=== PATIENT | male | born 1965 | race Caucasian/White ===

== ENCOUNTER 2019-01-04 16:36 | Emergency (ER) | payer OTHER ==
[~2019-01-04] VITALS: Ht 160 cm; Wt 53.7 kg
[2019-01-04 16:39] VITALS: PULSE 93; RESP 20; Ht 160 cm; Wt 53.7 kg
--- NOTE | 2019-01-04 16:44 | EN ---
Date/Time of Note Date/Time of Note DATE: 01/04/19 TIME: 16:43 ER Progress Note MSE in ED 3. Right buttock abscess to ED2 for I&D. DONG FULLER MD January 04, 2019 16:44
[2019-01-04] MEDS ORDERED: CEPHALEXIN 500 MG CAP PO ONE (17:00)
[2019-01-04] MEDS ORDERED: TRIMETHOPRIM/SULFAMETHOX (DS) TAB PO ONE (17:00)
[2019-01-04] MEDS ORDERED: LIDOCAINE 1% (MDV) 20 ML INJ SC ONE (17:00)
[2019-01-04] MEDS ORDERED: IBUPROFEN 600 MG TAB PO ONE (17:00)
[2019-01-04] MEDS ORDERED: SULF1TAB31 PO (17:10)
[2019-01-04] MEDS ORDERED: ACET1TAB40 PO (17:10)
[2019-01-04] MEDS ORDERED: CEPH-443 PO (17:10)
--- NOTE | 2019-01-04 17:13 | ERD ---
ER Documentation Chief Complaint Chief Complaint ABSCESS RIGHT UPPER THIGH HPI 53-year-old male presents with a one-week history of pain swelling redness and discharge on his right hip or upper thigh area. He denies a history of trauma. He possibly sat on something. Denies any vomiting. He has tactile fevers at home but no fever triage. He has no shortness of breath, chest pain, additional complaints. His blood pressure is elevated triage. He has a history of hypertension and takes medication. He denies any deficits, chest pain, shortness of breath. ROS All systems reviewed and are negative except as per history of present illness. Medications Home Meds Active Scripts Cephalexin* (Keflex*) 500 Mg Capsule, 500 MG PO QID for 7 Days, CAP Prov:DONG FULLER MD 01/04/19 Sulfamethoxazole/Trimethoprim* (Bactrim Ds* Tablet) 1 Each Tablet, 1 TAB PO BID for 7 Days, #14 TAB Prov:DONG FULLER MD 01/04/19 Acetaminophen with Codeine (Acetaminophen-Cod #3 Tablet) 1 Each Tablet, 1 TAB PO Q6H PRN for PAIN, #10 TAB Prov:DONG FULLER MD 01/04/19 Allergies Allergies: Coded Allergies: No Known Allergy (Unverified , 01/04/19) PMhx/Soc History of Surgery: No Anesthesia Reaction: No Hx Neurological Disorder: No Hx Respiratory Disorders: No Hx Cardiac Disorders: Yes (HTN) Hx Psychiatric Problems: No Hx Miscellaneous Medical Probl: No Hx Alcohol Use: No Hx Substance Use: No Hx Tobacco Use: No Smoking Status: Never smoker FmHx Family History: No diabetes, No coronary disease, No other Physical Exam Vitals Vital Signs Date Temp Pulse Resp B/P (MAP) Pulse Ox O2 O2 Flow FiO2 Time Delivery Rate 01/04/19 98.7 93 20 180/98 98 16:39 (125) Physical Exam Const: No acute distress Head: Atraumatic Eyes: Normal Conjunctiva ENT: Normal External Ears, Nose and Mouth. Neck: Full range of motion. No meningismus. Resp: Clear to auscultation bilaterally Cardio: Regular rate and rhythm, no murmurs Abd: Soft, non tender, non distended. Normal bowel sounds Skin: No petechiae or rashes. Right greater trochanter area approximately 3 cm area of redness, fluctuance, with a scant amount of spontaneous discharge. There is no induration or streaking. Back: No midline or flank tenderness Ext: No cyanosis, or edema Neur: Awake and alert Psych: Normal Mood and Affect Results 24 hrs Current Medications Medications Dose Sig/Tam Start Time Status Last (Trade) Ordered Route PRN Stop Time Admin Dose Reason Admin Ibuprofen 600 mg ONCE ONCE 01/04/19 DC (Motrin) PO 17:00 01/04/19 17:01 1 tab ONCE ONCE 01/04/19 DC Trimethoprim/ PO 17:00 01/04/19 17:01 Sulfamethoxaz ole (Bactrim (Ds)) Cephalexin 500 mg ONCE ONCE 01/04/19 DC (Keflex) PO 17:00 01/04/19 17:01 Lidocaine 20 ml ONCE ONCE 01/04/19 DC (Xylocaine SC 17:00 1% (Mdv) 20 01/04/19 17:01 ml) Procedures/MDM She presents with signs of an acute abscess on the right external hip area. There is no signs to suggest necrotizing fasciitis, sepsis. Procedure note-patient was given ibuprofen, Bactrim and Keflex. Right hip area was prepped with Betadine. 4 cc of lidocaine was used for local infiltration. #11 scalpel was used to incise the wound. Fibrin exudate was debrided. Small amount of pus was expressed. Wound was not packed due to the small size of the wound. Wound was dressed and patient tolerated procedure well. We discharged home with recommendations for wound care to recheck for improving infection the next 2 to 3 days. He should return sooner for worsening redness, fevers, vomiting, new worsening symptoms with primary care doctor. The patient's blood pressure was elevated (>120/80) but appears stable without evidence of hypertension emergency or urgency. The patient was counseled about the risks of hypertension and urged to pursue outpatient monitoring and therapy within a week with their primary care physician. I discussed the findings with the patient. I advised the patient to follow-up with the primary physician in about 1-2 days, sooner if needed and return if any concern. Departure Diagnosis: Primary Impression: Abscess Additional Impression: Hypertension Condition: Stable Patient Instructions: Abscess, Incision And Drainage Referrals: DOCTOR,NOT ON STAFF (PCP) Additional Instructions: Recheck in 2 to 3 days for further evaluation. Recheck sooner for worsening redness, fevers, vomiting, new worsening symptoms. Take ibuprofen 400 to 600 mg every 6 hours as well for pain. DONG FULLER MD January 04, 2019 17:13
[2019-01-04 17:21] VITALS: BP 144/87
== END 2019-01-04 17:21 | disposition home or self-care (01) ==
LOC: FTE 16:36
DX: L02.415 Cutaneous abscess of right lower limb (principal); I10 Essential (primary) hypertension
CPT/HCPCS: 10060; Z7502; Z7610

== ENCOUNTER 2019-01-06 07:50 | Emergency (ER) | payer OTHER ==
[~2019-01-06] VITALS: Wt 78.0 kg
[~2019-01-06 07:50] MED LIST: ACET1TAB40 PO; CEPH-443 PO; SULF1TAB31 PO
[2019-01-06 07:52] VITALS: BP 138/72; PULSE 74; RESP 18
--- NOTE | 2019-01-06 10:00 | ERD ---
ER Documentation Chief Complaint Chief Complaint RIGHT BUTTOCKS WOUND CHECK HPI 53-year-old male presenting with abscess recheck to his right thigh. Patient was placed on antibiotics 2 days ago and is taking medications. He had incision and drainage at that time. Patient's wound has been draining appropriately and he has no fevers or worsening pain. He states he feels that the symptoms are improving. Denies other medical problems. NKDA. Surgical history denies. Social history denies ROS All systems reviewed and are negative except as per history of present illness. Medications Home Meds Active Scripts Cephalexin* (Keflex*) 500 Mg Capsule, 500 MG PO QID for 7 Days, CAP Prov:DONG FULLER MD 01/04/19 Sulfamethoxazole/Trimethoprim* (Bactrim Ds* Tablet) 1 Each Tablet, 1 TAB PO BID for 7 Days, #14 TAB Prov:DONG FULLER MD 01/04/19 Acetaminophen with Codeine (Acetaminophen-Cod #3 Tablet) 1 Each Tablet, 1 TAB PO Q6H PRN for PAIN, #10 TAB Prov:DONG FULLER MD 01/04/19 Allergies Allergies: Coded Allergies: No Known Allergy (Unverified , 01/04/19) PMhx/Soc History of Surgery: No Anesthesia Reaction: No Hx Neurological Disorder: No Hx Respiratory Disorders: No Hx Cardiac Disorders: Yes (HTN) Hx Psychiatric Problems: No Hx Miscellaneous Medical Probl: No Hx Alcohol Use: No Hx Substance Use: No Hx Tobacco Use: No FmHx Family History: No diabetes, No coronary disease, No other Physical Exam Vitals Vital Signs Date Temp Pulse Resp B/P (MAP) Pulse Ox O2 O2 Flow FiO2 Time Delivery Rate 01/06/19 97.8 74 18 138/72 99 07:52 (94) Physical Exam GENERAL: The patient is well-appearing, well-nourished, in no acute distress CHEST: Clear to auscultation bilaterally. There are no rales, wheezes or rhonchi. HEART: Regular rate and rhythm. No murmurs, clicks, rubs or gallops. No S3 or S4. SKIN: Healing abscess noted to the right thigh with mild erythema. No fluctuanc e. No purulence removed. No lymphatic streaking. Procedures/MDM Course: Site clean and bandage applied. MDM: 53-year-old male presenting with wound check of abscess. Abscess is healing appropriately. I do not feel there is indication for further incision and drainage or packing placement. Patient is recommended to continue antibiotics as previously prescribed. It is recommended to clean with soap and water and apply warm compresses. Patient is discharged with strict ER precauti ons. Patient is told symptoms change or worsen to return the ER. All questions answered at discharge Departure Diagnosis: Primary Impression: Encounter for wound re-check Condition: Stable Patient Instructions: Wound Care Referrals: [facility] YOU HAVE RECEIVED A MEDICAL SCREENING EXAM AND THE RESULTS INDICATE THAT YOU DO NOT HAVE A CONDITION THAT REQUIRES URGENT TREATMENT IN THE EMERGENCY DEPARTMENT. FURTHER EVALUATION AND TREATMENT OF YOUR CONDITION CAN WAIT UNTIL YOU ARE SEEN IN YOUR DOCTORS OFFICE WITHIN THE NEXT 1-2 DAYS. IT IS YOUR RESPONSIBILITY TO MAKE AN APPOINTMENT FOR FOLOW-UP CARE. IF YOU HAVE A PRIMARY DOCTOR --you should call your primary doctor and schedule an appointment IF YOU DO NOT HAVE A PRIMARY DOCTOR YOU CAN CALL OUR PHYSICIAN REFERRAL HOTLINE AT IF YOU CAN NOT AFFORD TO SEE A PHYSICIAN YOU CAN CHOSE FROM THE FOLLOWING [facility] [address] [facility]. [facility] [address] [facility] [facility] [address] [facility] [facility] [address] [facility]. [facility] [address] [facility]. [facility]. [address] Additional Instructions: FOLLOW UP WITH YOUR PRIMARY CARE PHYSICIAN TOMORROW.Return to this facility if you are not improving as expected. KHOA HUFFMAN PA-C January 06, 2019 10:00
== END 2019-01-06 08:30 | disposition home or self-care (01) ==
LOC: FTE 07:50
DX: Z48.01 Encounter for change or removal of surgical wound dressing (principal); I10 Essential (primary) hypertension
CPT/HCPCS: 99281

== ENCOUNTER 2019-02-09 17:02 | Emergency (ER) | payer OTHER ==
[~2019-02-09] VITALS: Wt 56.2 kg
[2019-02-09] MEDS ORDERED: LIDOCAINE 4% CR TOP ONE (19:00)
[2019-02-09] MEDS ORDERED: LIDOCAINE 1% (MDV) 20 ML INJ SC ONE (19:00)
[2019-02-09] MEDS ORDERED: BACITRACIN 0.9 GM OINT TOP ONE (19:00)
--- NOTE | 2019-02-09 19:05 | ERD ---
ER Documentation Chief Complaint Chief Complaint ABCESS ONLEFT HIP, RIGHT BUTTOCKS HPI 53-year-old male with history of abscesses presents with complaint of abscess on the right buttocks and left hip. States he knows he probably is going to be getting a little bit better. States he just had abscesses drained returns from location on December 29. Denies any fevers, chills. ROS All systems reviewed and are negative except as per history of present illness. Medications Home Meds Active Scripts Cephalexin* (Keflex*) 500 Mg Capsule, 500 MG PO QID for 7 Days, CAP Prov:SHIRLEY COLIN 02/09/19 Sulfamethoxazole/Trimethoprim* (Bactrim Ds* Tablet) 1 Each Tablet, 1 TAB PO BID, #14 TAB Prov:SHIRLEY COLIN 02/09/19 Cephalexin* (Keflex*) 500 Mg Capsule, 500 MG PO QID for 7 Days, CAP Prov:DONG FULLER MD 01/04/19 Sulfamethoxazole/Trimethoprim* (Bactrim Ds* Tablet) 1 Each Tablet, 1 TAB PO BID for 7 Days, #14 TAB Prov:DONG FULLER MD 01/04/19 Acetaminophen with Codeine (Acetaminophen-Cod #3 Tablet) 1 Each Tablet, 1 TAB PO Q6H PRN for PAIN, #10 TAB Prov:DONG FULLER MD 01/04/19 Allergies Allergies: Coded Allergies: No Known Allergy (Unverified , 01/04/19) PMhx/Soc History of Surgery: No Anesthesia Reaction: No Hx Neurological Disorder: No Hx Respiratory Disorders: No Hx Cardiac Disorders: Yes (HTN) Hx Psychiatric Problems: No Hx Miscellaneous Medical Probl: No Hx Alcohol Use: No Hx Substance Use: No Hx Tobacco Use: No Smoking Status: Never smoker FmHx Family History: No diabetes, No coronary disease, No other Physical Exam Vitals Vital Signs Date Temp Pulse Resp B/P (MAP) Pulse Ox O2 O2 Flow FiO2 Time Delivery Rate 02/09/19 99.0 88 18 155/82 99 17:08 (106) Physical Exam Const: No acute distress Head: Atraumatic Eyes: Normal Conjunctiva ENT: Normal External Ears, Nose and Mouth. Neck: Full range of motion. No meningismus. Resp: Clear to auscultation bilaterally Cardio: Regular rate and rhythm, no murmurs Abd: Soft, non tender, non distended. Normal bowel sounds Skin: Approximately 3 cm fluctuant mass erythematous and tender palpation noted on the lateral aspect of right buttocks. There is no draining or lymphatic streaking noted. In addition there is a approximately 2 cm indurated nonfluctuant erythematous tender palpation mass noted on the left upper extremity with no drainage or lymphatic streaking noted. No surrounding cellulitis noted on either abscess. Back: No midline or flank tenderness Ext: No cyanosis, or edema Neur: Awake and alert Psych: Normal Mood and Affect Results 24 hrs Current Medications Medications Dose Sig/Tam Start Time Status Last (Trade) Ordered Route PRN Stop Time Admin Dose Reason Admin Lidocaine 1 applic ONCE ONCE 02/09/19 DC 02/09/19 (Lmx 4% Plus) TOP 19:00 18:59 02/09/19 19:01 Lidocaine 20 ml ONCE ONCE 02/09/19 DC (Xylocaine SC 19:00 1% (Mdv) 20 02/09/19 19:01 ml) Bacitracin 1 applic ONCE ONCE 02/09/19 DC 02/09/19 (Bacitracin TOP 19:00 18:59 Oint (Ud)) 02/09/19 19:01 Procedures/MDM MDM: Abscess on the buttocks was attempted to drained but very little pus came out. Patient was placed on Bactrim and Keflex and advised to return in 2 days for wound check. Patient given instructions on how to help drain the abscesses including warm compresses and soaks. At this time of low suspicion for lymphangitis, cellulitis, or any emergent condition. And also to return in 2 days for follow-up exam at this time, patient is stable for discharge and outpatient management. I have instructed the patient to follow-up with his/her primary care physician in 1-2 days. I have discussed with the patient the possibility of needing to see a specialist for further workup and imaging studies if symptoms persist. I have instructed the patient to promptly return to the ER for any new or worsening symptoms including but not limited to increased pain, fever, nausea, vomiting, weakness or LOC. The patient and/or family expressed understanding of and agreement with this plan. All questions were answered. Home care instructions were provided. DISCLAIMER: Inadvertent spelling and grammatical errors are likely due to EHR/dictation software use and do not reflect on the overall quality of patient care. Also, please note that the electronic time recorded on this note does not necessarily reflect the actual time of the patient encounter. Departure Diagnosis: Primary Impression: Abscess Condition: Stable SHIRLEY COLIN Feb 09, 2019 19:05
[2019-02-09] MEDS ORDERED: CEPH-443 PO (20:24)
[2019-02-09] MEDS ORDERED: SULF1TAB31 PO (20:24)
[2019-02-09 20:45] VITALS: BP 174/95; PULSE 77; RESP 18
== END 2019-02-09 20:47 | disposition home or self-care (01) ==
LOC: FTE 17:02
DX: L02.31 Cutaneous abscess of buttock (principal); I10 Essential (primary) hypertension
CPT/HCPCS: 10060; Z7502; Z7610

== ENCOUNTER 2019-02-12 18:02 | Emergency (ER) | payer OTHER ==
[~2019-02-12] VITALS: Ht 167.6 cm; Wt 56.8 kg
[2019-02-12 18:10] VITALS: Ht 167.6 cm; Wt 56.8 kg
[2019-02-12] MEDS ORDERED: CEPH500C PO (18:39)
[2019-02-12] MEDS ORDERED: CHLO118L3 TOP (18:39)
[2019-02-12] MEDS ORDERED: MUPI15CR9 NASAL (18:39)
[2019-02-12] MEDS ORDERED: SULF1TAB31 PO (18:39)
[2019-02-12 19:06] VITALS: BP 121/70; PULSE 80; RESP 26
--- NOTE | 2019-02-12 19:23 | ERD ---
ER Documentation Chief Complaint Chief Complaint Pt here for 48 hours wound check. HPI History of Present Illness: 53-year-old male who reports a past medical history of hypertension coming in today for complaint of wound recheck. Patient was at [facility] emergency department on 02/09/2019 in which she was diagnosed with abscess with incision and drainage. Patient reports that this has been secondary to third abscess of the same area of his buttocks and he is concerned because of recurrence. Patient denies any other associated symptoms denies At home pharmacological/nonpharmacological treatment for symptoms: Denies social concerns; Denies recent foreign travel ROS All systems reviewed and are negative except as per history of present illness. Medications Home Meds Active Scripts Chlorhexidine Gluconate* (Chlorhexidine Gluconate*) 118 Ml Liquid, 5 ML TOP QHS for RECURRENT ABSESS, #1 BOTTLE mix 5mL of chlorhexidine with water and clean wound for 15-30 seconds then rinse. Prov:MARTINEZ RAMOS NP 02/12/19 Mupirocin Calcium* (Mupirocin*) 2% - 15 Gram Cream..g., 1 APPLIC NASAL BID for RECURRENT ABSCESS for 7 Days, #1 TUB Prov:MARTINEZ RAMOS NP 02/12/19 Sulfamethoxazole/Trimethoprim* (Bactrim Ds* Tablet) 1 Each Tablet, 1 TAB PO BID for RECURRENT ABSCESS for 3 Days, TAB Start this prescription after you complete your 7-day course of bactrim that you are currently taking FOR a total of 10 days of bactrim Prov:MARTINEZ RAMOS NP 02/12/19 Cephalexin* (Cephalexin*) 500 Mg Capsule, 500 MG PO Q6 for RECURRENT ABSCESS for 3 Days, #28 CAP Start this prescription after you complete your 7-day course of cephalexin that you are currently taking FOR a total of 10 days of cephalexin. Prov:MARTINEZ RAMOS NP 02/12/19 Cephalexin* (Keflex*) 500 Mg Capsule, 500 MG PO QID for 7 Days, CAP Prov:SHIRLEY COLIN 02/09/19 Sulfamethoxazole/Trimethoprim* (Bactrim Ds* Tablet) 1 Each Tablet, 1 TAB PO BID, #14 TAB Prov:SHIRLEY COLIN 02/09/19 Cephalexin* (Keflex*) 500 Mg Capsule, 500 MG PO QID for 7 Days, CAP Prov:DONG FULLER MD 01/04/19 Sulfamethoxazole/Trimethoprim* (Bactrim Ds* Tablet) 1 Each Tablet, 1 TAB PO BID for 7 Days, #14 TAB Prov:DONG FULLER MD 01/04/19 Acetaminophen with Codeine (Acetaminophen-Cod #3 Tablet) 1 Each Tablet, 1 TAB PO Q6H PRN for PAIN, #10 TAB Prov:DONG FULLER MD 01/04/19 Allergies Allergies: Coded Allergies: No Known Allergy (Unverified , 01/04/19) PMhx/Soc Medical and Surgical Hx: pt denies Surgical Hx History of Surgery: No Anesthesia Reaction: No Hx Neurological Disorder: No Hx Respiratory Disorders: No Hx Cardiac Disorders: Yes (HTN) Hx Psychiatric Problems: No Hx Miscellaneous Medical Probl: No Hx Alcohol Use: No Hx Substance Use: No Hx Tobacco Use: No Smoking Status: Never smoker FmHx Family History: No diabetes, No coronary disease Physical Exam Vitals Vital Signs Date Temp Pulse Resp B/P (MAP) Pulse Ox O2 O2 Flow FiO2 Time Delivery Rate 02/12/19 98.9 80 26 121/70 98 Room Air 19:06 (87) 02/12/19 98.9 82 26 123/69 97 18:10 (87) Physical Exam Const: No acute distress, afebrile Head: Atraumatic Eyes: Normal Conjunctiva ENT: Normal External Ears, Nose and Mouth. Neck: Full range of motion. No meningismus. Resp: Clear to auscultation bilaterally Cardio: Regular rate and rhythm, no murmurs Abd: Soft, non tender, non distended. No guarding, no masses, no rigidity Skin: No petechiae or rashes; healing abscess noted to the right buttocks cheek, mild induration, no warmth, no erythema, no purulent drainage Back: No midline or flank tenderness Ext: No cyanosis, or edema Neur: Awake and alert x3, speaking in clear sentences, no focal deficits or facial asymmetry Psych: Normal Mood and Affect Procedures/MDM ED COURSE: ED course includes a thorough examination and history. The patient was stable throughout ED course. I kept the patient and/or family informed of laboratory and diagnostic imaging results throughout the ED course. LABS: None MEDICATIONS GIVEN IN ER: None DIAGNOSTIC IMAGING: None. PROCEDURES: None. MEDICAL DECISION MAKING: Low suspicion for life-threatening medical emergency. Low suspicion for infectious process that requires IV/IM antibiotics. patient presenting with constellation of symptoms likely recurrent abscesses/encounter for wound recheck as characterized by history, physical exam findings. Patient reassessment @ 1849: After thorough discussion with patient, will extend antibiotic course of cephalexin and Bactrim from 7 days to 10 days. Will also add Bactroban for MRSA to nares coverage in the event that patient is a carrier. Also added chlorhexidine for patient to use nightly for wound care. Hand hygiene and home cleaning discussed. Patient hemodynamically stable. No respiratory distress, otherwise relatively well appearing and nontoxic. Disposition given. Patient educated on diagnoses, prescriptions, follow-up care, return precautions. Strict return precautions given for worsening condition; questions answered discharge. Patient verbalizes understanding of discharge instructions. PRESCRIPTIONS FOR HOME: Cephalexin, Bactrim, chlorhexidine, Bactroban DISPOSITION: DISCHARGE At this time, patient is stable for discharge and outpatient management. I have instructed the patient to follow-up with his/her primary care physician in 1-2 days. I have discussed with the patient the possibility of needing to see a specialist for further workup and imaging studies if symptoms persist. I have instructed the patient to promptly return to the ER for any new or worsening symptoms including increased pain, fever, nausea, vomiting, weakness or LOC. The patient and/or family expressed understanding of and agreement with this plan. All questions were answered. Home care instructions were provided. DISCLAIMER: Inadvertent spelling and grammatical errors are likely due to EHR/dictation software use and do not reflect on the overall quality of patient care. Also, please note that the electronic time recorded on this note does not necessarily reflect the actual time of the patient encounter. Departure Diagnosis: Primary Impression: Encounter for wound re-check Condition: Stable Patient Instructions: Wound Care, Abscess, Antibiotic Treatment Only [Child] Referrals: [facility] YOU HAVE RECEIVED A MEDICAL SCREENING EXAM AND THE RESULTS INDICATE THAT YOU DO NOT HAVE A CONDITION THAT REQUIRES URGENT TREATMENT IN THE EMERGENCY DEPARTMENT. FURTHER EVALUATION AND TREATMENT OF YOUR CONDITION CAN WAIT UNTIL YOU ARE SEEN IN YOUR DOCTORS OFFICE WITHIN THE NEXT 1-2 DAYS. IT IS YOUR RESPONSIBILITY TO MAKE AN APPOINTMENT FOR FOLOW-UP CARE. IF YOU HAVE A PRIMARY DOCTOR --you should call your primary doctor and schedule an appointment IF YOU DO NOT HAVE A PRIMARY DOCTOR YOU CAN CALL OUR PHYSICIAN REFERRAL HOTLINE AT IF YOU CAN NOT AFFORD TO SEE A PHYSICIAN YOU CAN CHOSE FROM THE FOLLOWING [facility] [address] [facility] [address] [facility] [address] [facility] [address] [facility] [address] [facility] [facility] [address] [facility]. [facility] YOU HAVE RECEIVED A MEDICAL SCREENING EXAM AND THE RESULTS INDICATE THAT YOU DO NOT HAVE A CONDITION THAT REQUIRES URGENT TREATMENT IN THE EMERGENCY DEPARTMENT. FURTHER EVALUATION AND TREATMENT OF YOUR CONDITION CAN WAIT UNTIL YOU ARE SEEN IN YOUR DOCTORS OFFICE WITHIN THE NEXT 1-2 DAYS. IT IS YOUR RESPONSIBILITY TO MAKE AN APPOINTMENT FOR FOLOW-UP CARE. IF YOU HAVE A PRIMARY DOCTOR --you should call your primary doctor and schedule and appointment IF YOU DO NOT HAVE A PRIMARY DOCTOR YOU CAN CALL OUR PHYSICIAN REFERRAL HOTLINE AT . IF YOU CAN NOT AFFORD TO SEE A PHYSICIAN YOU CAN CHOSE FROM THE FOLLOWING [facility]: [facility] [address] [place] [address] [facility] [address] [place] [address] [facility] [address] [place] [address] Additional Instructions: Thank you very much for allowing us to participate in your care. Your health and safety is our top priority at [facility]. It is important to read all discharge instructions and education provided in your discharge packet. Call your primary care doctor TOMORROW for an appointment during the next 2-4 days and bring all the information and medications prescribed. Have prescriptions filled and follow precisely the directions on the label. If the symptoms get worse and your provider is unavailable, return to the Emergency Department immediately. MARTINEZ RAMOS NP Feb 12, 2019 19:23
== END 2019-02-12 19:07 | disposition home or self-care (01) ==
LOC: FTE 18:02
DX: Z48.01 Encounter for change or removal of surgical wound dressing (principal); I10 Essential (primary) hypertension
CPT/HCPCS: 99283